=== PATIENT | male | born 1985 | race Two or more races ===

== ENCOUNTER 2022-02-06 09:13 | Emergency (ER) | payer OTHER ==
[2022-02-06 09:21] VITALS: BP 135/102; PULSE 108; TEMP 98.1; BMI 34.7
[2022-02-06] MEDS ORDERED: IBUPROFEN 600 MG TABLET (FP) PO ONE ×2 (09:39→09:42)
== END 2022-02-06 10:44 | disposition home or self-care (01) ==
LOC: JER 09:13 → JERFT 09:13
DX: M25.562 Pain in left knee (principal); X50.0XXA Overexertion from strenuous movement or load, initial encounter
CPT/HCPCS: 73562-TC-LT-FY; 99283-25

== ENCOUNTER 2025-03-16 07:55 | Emergency (ER) | payer OTHER ==
[2025-03-16 08:07] VITALS: BP 166/95; PULSE 93; RESP 16; TEMP 98.6; BMI 31.6
[2025-03-16] MEDS ORDERED: MAG HYDROX/AL HYDROX/SIMETH 30 ML UNIT-DOSE CUP ONE (09:02)
[2025-03-16] MEDS ORDERED: ONDANSETRON 4 MG/2 ML VIAL ONE (09:02)
[2025-03-16] MEDS ORDERED: FAMOTIDINE 20 MG/50 ML IVPB 20 MG/50 ML MG IVPB ONE (09:02)
[2025-03-16] MEDS: LACTATED RINGERS SOLUTION 1,000 ML/1,000 ML INFUS.BAG IV STA (09:27)
[2025-03-16] MEDS: ONDANSETRON 4 MG/2 ML VIAL IVPUSH ONE (09:27)
[2025-03-16] MEDS: FAMOTIDINE 20 MG/50 ML IVPB 20 MG/50 ML MG IVPB ONE (09:27)
[2025-03-16] MEDS: MAG HYDROX/AL HYDROX/SIMETH 30 ML UNIT-DOSE CUP PO ONE (09:27)
[2025-03-16 09:40] LABS: ABSOLUTE IMMATURE GRANULOCYTES 0.07 x10^3/uL (0.0-0.031); BASOPHILS # 0.05 x10^3/uL (0.01-0.08); EOSINOPHIL % 0.6 % (0.8-7.0); EOSINOPHILS # 0.08 x10^3/uL (0.04-0.54); HEMATOCRIT 44.6 % (40.1-51.0); HEMOGLOBIN 15.2 g/dL (13.7-17.5); MCHC 34.1 g/dl (32.3-36.5); MEAN CELL VOLUME 94.5 fl (79.0-92.2); MEAN PLT VOLUME 9.9 fl (9.4-12.4); MONOCYTE # 0.67 x10^3/uL (0.30-0.82); MONOCYTE % 5.3 % (5.3-12.2); PLATELET COUNT 225 x10^3/uL (163-337); RDW 12.4 % (12.0-15.6)
[2025-03-16 09:58] LABS: POTASSIUM 3.8 mmol/L (3.5-5.1)
[2025-03-16 10:00] LABS: CALCIUM 9.9 mg/dL (8.5-10.1)
[2025-03-16 10:02] LABS: BLOOD UREA NITROGEN 5.8 mg/dL (7-18); MAGNESIUM 2.3 mg/dL (1.8-2.4)
[2025-03-16 10:05] LABS: CREATININE 0.9 mg/dL (0.55-1.3)
[2025-03-16 10:06] LABS: BILIRUBIN,TOTAL 0.6 mg/dL (0.2-1); TOT PROT 8.2 g/dl (6.4-8.2)
== END 2025-03-16 11:49 | disposition home or self-care (01) ==
LOC: JER 07:55
PROC: 3E033GC Introduction of Other Therapeutic Substance into Peripheral Vein, Percutaneous Approach (ICD-10-PCS; principal; 2025-03-16)
PROC: 3E033GC Introduction of Other Therapeutic Substance into Peripheral Vein, Percutaneous Approach (ICD-10-PCS; 2025-03-16)
DX: K29.20 Alcoholic gastritis without bleeding (principal); F10.988 Alcohol use, unspecified with other alcohol-induced disorder; Y90.9 Presence of alcohol in blood, level not specified; R11.2 Nausea with vomiting, unspecified; R10.9 Unspecified abdominal pain; R13.10 Dysphagia, unspecified; R61 Generalized hyperhidrosis; R06.2 Wheezing; R07.0 Pain in throat
CPT/HCPCS: 0241U-QW; 36415; 71045-TC-FY; 80053; 83690; 83735; 84484; 85025; 93005; 93010; 99285-25